=== PATIENT | male | born 1945 | race Caucasian/White ===

== ENCOUNTER 2018-05-31 11:36 | Observation (INO) ==
[2018-05-31] MEDS ORDERED: ceFAZolin 2 GM Premix Inj 2 GM/50 ML PIGGYBACK IV.SIG ONE (12:43)
[2018-05-31] MEDS ORDERED: ceFAZolin 2 GM IV; once IV.SIG SCH (13:00)
[2018-05-31] MEDS ORDERED: Metoprolol Tartrate 25 MG Tablet PO ONE (13:00)
[2018-05-31] MEDS ORDERED: Chlorhexidine Gluconate 2% 1 Pack (2 Cloths) TOPICAL ONE (13:00)
[2018-05-31] MEDS ORDERED: Sodium Chlor 0.9% Inj 500 ML IV.CONT ONE (13:00)
[2018-05-31] MEDS ORDERED: Chlorhexidine Gluconate 2% 1 Pack (2 Cloths) TOPICAL SCH (13:00)
[2018-05-31 13:10] LABS: Baso # (Auto) 0.1 th/mm3 (0.0-0.2); Eos # (Auto) 0.2 th/mm3 (0.0-0.4); Hematocrit 44.9 % (39.0-51.0); Hemoglobin 15.4 gm/dL (13.0-17.0); Lymph # (Auto) 3.1 th/mm3 (1.0-4.8); Lymph % (Auto) 31.2 % (9.0-44.0); Mean Corpuscular HGB Conc 34.3 % (32.0-36.0); Mean Corpuscular Hemoglobin 31.9 pg (27.0-34.0); Mean Corpuscular Volume 92.9 fL (80.0-100.0); Mean Platelet Volume 9.3 fL (7.0-11.0); Mono # (Auto) 0.8 th/mm3 (0.0-0.9); Mono % (Auto) 8.5 % (0.0-8.0); Neut # (Auto) 5.7 th/mm3 (1.8-7.7); Neut % (Auto) 57.3 % (16.0-70.0); Platelet Count 216 th/mm3 (150-450); Red Blood Count 4.83 mil/mm3 (4.50-5.90); Red Cell Distribution Width 14.2 % (11.6-17.2)
[2018-05-31 13:16] LABS: Bilirubin,Urine Negative (Negative); Clarity,Urine Clear (Clear); Color,Urine Yellow (Yellw/Straw); Glucose,Urine (UA) Negative (Negative); Leukocyte Esterase,Urine Negative (Negative); Nitrite,Urine Negative (Negative)
[2018-05-31 13:21] LABS: Activated Partial Thrombo Time 26.6 sec (23.4-31.7); INR 1.1 Ratio; Prothrombin Time 10.7 sec (9.8-11.6)
[2018-05-31 13:29] LABS: Albumin 3.8 g/dL (3.4-5.0); Anion Gap 8 meq/L (5-15); Aspartate Aminotransferase 33 U/L (15-37); Blood Urea Nitrogen 30 mg/dL (7-18); Calcium 9.2 mg/dL (8.5-10.1); Carbon Dioxide 28.9 meq/L (21.0-32.0); Chloride 103 meq/L (98-107); Glomerular Filtration Rate 25 mL/min (>89); Glucose,Random 105 mg/dL (74-106); Potassium 3.6 meq/L (3.5-5.1); Sodium 140 meq/L (136-145)
[2018-05-31 13:39] LABS: Alanine Aminotransferase 43 U/L (12-78); Alkaline Phosphatase 127 U/L (45-117); Total Protein 7.6 g/dL (6.4-8.2)
[2018-05-31] MEDS ORDERED: fentaNYL Citrate Inj 250 MCG/5 ML Ampul ONE (15:33)
[2018-05-31] MEDS ORDERED: fentaNYL Citrate Inj 100 MCG/2 ML Ampul ONE ×2 (15:33→19:59)
[2018-05-31] MEDS ORDERED: Bupivacaine/Epinephrine PF Inj 0.5% 30 ML Vial ONE (16:50)
[2018-05-31] MEDS ORDERED: Thrombin Topical Soln 5,000 UNIT Vial TOPICAL ONE (16:50)
[2018-05-31] MEDS ORDERED: methylPREDNISolone acetate 40 MG/ML VIAL ONE (16:50)
[2018-05-31] MEDS ORDERED: Gelatin Size 100 Topical Foam ONE (16:50)
[2018-05-31] MEDS ORDERED: ceFAZolin Inj 500 MG Vial ONE (17:18)
[2018-05-31] MEDS ORDERED: Morphine Sulfate Inj 2 MG/ML Vial IV.PUSH PRN (17:57)
[2018-05-31] MEDS ORDERED: Bisacodyl 10 MG Supp RECTAL PRN (17:57)
--- NOTE | 2018-05-31 19:51 | P.OP ---
Preoperative Diagnosis: Lumbar spinal stenosis Postoperative Diagnosis: Lumbar spinal stenosis Date of procedure: 05/31/18 Procedure: L4-5, L5-S1 left hemilaminectomy, mesiofacetectomy, foraminotomy, microsurgical dissection Anesthesia: BRIE Surgeon: Jerrell Barbosa MD Machine Boss: Priya Louie Pathology: none sent Operation and Findings: INDICATIONS FOR THE SURGICAL PROCEDURE Mr Yanes is a 72 year-old male who presented with intractable mechanical back pain and clinical evidence of lower extremity radiculopathy. The patient was found to have significant lumbar spinal stenosis with significant mass effect on the neural structures which correlated with the clinical symptoms. He failed maximum nonsurgical management including multiple modalities of conservative treatment as well as pain management interventions by an interventional pain specialist. A surgical decompression was indicated as a last resort. The [id number] details of the procedure, indications, alternatives, risks and potential complications were fully discussed with the patient. The patient fully understood. All the questions were answered. No guarantees were given. The patient voiced requesting the procedure and provided informed consents. The patient was offered the alternative of delaying the procedure and continuing with nonsurgical management. DETAILS OF THE SURGICAL PROCEDURE After the induction of general anesthesia, endotracheal intubation was performed. A Valdez catheter, bilateral EZEQUIEL hose and sequential compression devices were placed and kept throughout the procedure. The patient was positioned prone on a Dylan table over a Randolph frame. All pressure points were carefully padded with eggcrate mattress. The eyes were tapped shut after ointment was applied by the anesthesiologist to prevent corneal abrasion. A Samra hugger was placed over the exposed lower body to maintain control of the core body temperature. The lower lumbar region was prepped and draped in the usual sterile fashion. A spinal needle was placed for localization and an x- ray performed with a C-arm. A skin incision was made in the midline over the spinous processes L4-S1 with a #10 blade. Small subcutaneous bleeders were controlled with a bipolar and the dissection was carried out through the lumbar fascia exposing the spinous processes. A subperiostial dissection was performed with a Morillo elevator and a Bovie over the L4, L5, and S1 spinous process lamina and facets. A microdiscectomy self-retaining retractor was placed on the incision and an x- ray was obtained with an instrument placed underneath the lamina. At this point in the procedure the operating microscope was draped in the usual sterile fashion and brought to the field. The rest of the surgical procedure was performed using microsurgical dissection technique with exception of the closure. Once the level was confirmed, a decompressive laminectomy was performed at L4-5 , L5-S1 on the left side using the TPS drill with an 4mm drill bit. A medial facetectomy was performed and the superior free border of the ligamentum flavum was dissected with a ligament dissector and removed with a thin footplate 2 mm Kerrison. The medial facetectomy was done and the L5 nerve root was identified and followed towards its exit in the foramen. Epidural veins located laterally to the dural sac were coagulated with a bipolar and incised with microscissors. Gentle medial retraction of the dural sac allowed inspection of the disc space. The patient had severe facet arthropathy with hypertrhopy of the joint facets and ligamentum flavum resulting in mass effect over the dural sac and nerve roots. In addition, there was a broad-based minimal disc protusion, not significantly contributing to the stenosis. The incision was irrigated with a large amount of saline solution. A Valsalva maneuver failed to show any cerebrospinal fluid leak or bleeding. The decompression was assessed again and found to be satisfactory. The incision was then closed in layers. The fascia was closed with 0 Vicryl sutures in an interrupted fashion. The superficial fascia was closed with 0 Vicryl sutures. The fascia was infiltrated with 0.5% Marcaine with epinephrine 1:100,000 dilution. The subcutaneous tissue was irrigated then closed with 0 Vicryl and 3 -0 Vicryl. The skin was closed with 4-0 running subcuticular Vicryl. A sterile dressing was applied. At the end of the procedure, the sponge, needle and instrument counts were all correct. Estimated blood loss was less than 70-80 cc. No blood transfusion was given. No intraoperative complications occurred. The patient received prophylactic antibiotics. The patient was then extubated and transferred to the recovery room in stable condition.
[2018-05-31] MEDS ORDERED: *morphine SULFATE 10 MG/ML PERIprocedure ONLY ONE ×2 (20:10→20:21)
[2018-05-31] MEDS: Sod Chloride 0.9% Inj 1,000 ML IV.CONT SCH (20:18)
[2018-05-31] MEDS ORDERED: *HYDROmorphone PF Inj 1 MG/ML Ampul PERIprocedural Use ONLY ONE (20:31)
[2018-05-31] MEDS: Senna/Docusate Sodium 8.6/50 MG Tablet PO SCH (21:47)
--- NOTE | 2018-05-31 22:30 | XR ---
EXAM DATE: 05/31/2018 10:26 PM EST AGE/SEX: 72 years / Male INDICATIONS: Level localization, L4-5, L5-S1 laminectomy. CLINICAL DATA: This is the patient's initial encounter. Patient reports that signs and symptoms have been present for 1 day and indicates a pain score of Nonresponsive. MEDICAL/SURGICAL HISTORY: Non-responsive. Non-responsive. COMPARISON: No prior exams available for comparison. FINDINGS: Single lateral view from the operating room shows posterior soft tissue retractors and a metallic poi nter. The pointer is at L5/S1. CONCLUSION: Pointer at L5/S1. Electronically signed by: Burt Herbert MD 05/31/2018 10:29 PM EST
[2018-06-01] MEDS ORDERED: ceFAZolin 2 GM Premix Inj 2 GM/50 ML PIGGYBACK IV.SIG SCH (02:00)
[2018-06-01] MEDS: Sod Chloride 0.9% Inj 1,000 ML IV.CONT SCH (03:14)
[2018-06-01] MEDS ORDERED: CHLORTHALIDONE 25 MG PO SCH (09:00)
[2018-06-01] MEDS ORDERED: Finasteride 5 MG Tablet PO SCH (09:00)
[2018-06-01] MEDS ORDERED: Allopurinol 100 MG Tablet PO SCH (09:00)
--- NOTE | 2018-06-01 09:40 | P.DS ---
Date of admission: 05/31/18 18:01 Primary care physician: UNKNOWN Brief History from admission: Mr Yanes is a 72 year-old male who presented with intractable mechanical back pain and clinical evidence of lower extremity radiculopathy. The patient was found to have significant lumbar spinal stenosis with significant mass effect on the neural structures which correlated with the clinical symptoms. He failed maximum nonsurgical management including multiple modalities of conservative treatment as well as pain management interventions by an interventional pain specialist. A surgical decompression was indicated as a last resort. DS: Medications - Discharge Medications Prescriptions: tramadol [Ultram] 100 mg PO Q6H PRN #15 tab PRN Reason: Pain 1-10 And/Or Fever >101f DS: Summary Hospital Course: Mr. Yanes underwent an L4-5, L5-S1 left hemilaminectomy, mesiofacetectomy, foraminotomy, microsurgical dissection for Lumbar spinal stenosis on 05/31/18. His surgery went well without complications and he will be discharged home in stable conditions. - Time Spent with Patient Total time spent providing and/or coordinating discharge services: Less than 30 minutes - Quality: VTE Deep Vein Thrombosis/Pulmonary Embolism Present on Admission: No Exam Vital signs: Vital Signs 05/31/18 12:32 05/31/18 19:49 05/31/18 20:00 Temperature 97.9 F 97.8 F Pulse Rate 82 79 75 Respiratory Rate 16 15 12 Blood Pressure 154/84 H 135/81 153/71 H Pulse Oximetry 98 92 L 92 L 05/31/18 20:15 05/31/18 20:19 05/31/18 20:30 Temperature Pulse Rate 68 68 Respiratory Rate 12 12 12 Blood Pressure 164/75 H 162/73 H Pulse Oximetry 97 97 05/31/18 20:45 05/31/18 21:00 05/31/18 21:08 Temperature 98.0 F 97.4 F L Pulse Rate 70 70 Respiratory Rate 21 18 Blood Pressure 163/79 H 152/64 H Pulse Oximetry 94 L 97 95 05/31/18 21:45 06/01/18 00:00 06/01/18 04:00 Temperature 97.4 F L 97.3 F L Pulse Rate 74 66 Respiratory Rate 18 18 Blood Pressure 147/63 H 138/61 Pulse Oximetry 95 96 95 06/01/18 08:00 Temperature 98.1 F Pulse Rate 67 Respiratory Rate 17 Blood Pressure 107/53 L Pulse Oximetry 92 L Intake & Output 05/31/18 06/01/18 06/01/18 18:59 06:59 18:59 Intake Total 2980 / 2980 Output Total 500 / 500 Balance 2480 / 2480 Weight 140.5 kg 152.9 kg Intake: IV 1100 / 1100 NS Inj 1,000 ML @ 100 mls/hr IV 1000 / 1000 .CONT .Q10H MELVINA Rx#:[id number] Ancef 2 GM Premix Inj 2 gm In 100 / 100 50 ml @ 100 mls/hr IV.SIG Q8H MELVINA Rx#:[id number] Oral 480 / 480 Anesthesia Amount 1400 / 1400 Output: Urine 200 / 200 Estimated Blood Loss 80 / 80 Urine Amount (Catheter) 150 / 150 Indwelling Urethral Catheter 150 / 150 Wound Drainage 70 / 70 # 1 Back 70 / 70 Other: Date of Last Bowel Movement 05/30/18 Weight On Admission 140.5 kg Results Procedures completed during hospitalization: L4-5, L5-S1 left hemilaminectomy, mesiofacetectomy, foraminotomy, microsurgical dissection Labs on day of discharge: Labs from last 24 hours 05/31/18 05/31/18 05/31/18 12:35 12:35 12:35 WBC 10.0 RBC 4.83 Hgb 15.4 Hct 44.9 MCV 92.9 MCH 31.9 MCHC 34.3 RDW 14.2 Plt Count 216 MPV 9.3 Neut % (Auto) 57.3 Lymph % (Auto) 31.2 [place] % (Auto) 8.5 H Eos % (Auto) 2.0 Baso % (Auto) 1.0 Neut # (Auto) 5.7 Lymph # (Auto) 3.1 [place] # (Auto) 0.8 Eos # (Auto) 0.2 Baso # (Auto) 0.1 WBC Differential . Differential Comment Auto diff final PT 10.7 INR 1.1 APTT 26.6 Sodium 140 Potassium 3.6 Chloride 103 Carbon Dioxide 28.9 Anion Gap 8 BUN 30 H Creatinine 2.52 H Estimated GFR 25 L Random Glucose 105 Calcium 9.2 Total Bilirubin 0.6 AST 33 ALT 43 Alkaline Phosphatase 127 H Total Protein 7.6 Albumin 3.8 Urine Color Urine Clarity Urine pH Ur Specific [place] Urine Protein Urine Glucose (UA) Urine Ketones Urine Occult Blood Urine Nitrate Urine Bilirubin Urine Urobilinogen Ur Leukocyte Esterase Urine RBC Urine WBC Micro UA Comment Ur Microscopic Review Urine Culture Comments 05/31/18 12:30 WBC RBC Hgb Hct MCV MCH MCHC RDW Plt Count MPV Neut % (Auto) Lymph % (Auto) [place] % (Auto) Eos % (Auto) Baso % (Auto) Neut # (Auto) Lymph # (Auto) [place] # (Auto) Eos # (Auto) Baso # (Auto) WBC Differential Differential Comment PT INR APTT Sodium Potassium Chloride Carbon Dioxide Anion Gap BUN Creatinine Estimated GFR Random Glucose Calcium Total Bilirubin AST ALT Alkaline Phosphatase Total Protein Albumin Urine Color Yellow Urine Clarity Clear Urine pH 6.0 Ur Specific [place] 1.010 Urine Protein 100 H Urine Glucose (UA) Negative Urine Ketones Negative Urine Occult Blood Negative Urine Nitrate Negative Urine Bilirubin Negative Urine Urobilinogen Less than 2 Ur Leukocyte Esterase Negative Urine RBC Less than 1 Urine WBC Less than 1 Micro UA Comment Culture not ind Ur Microscopic Review Not Reportable Urine Culture Comments Culture not ind - Impressions ITS Impressions Lumbar Spine X-Ray 05/31/18 00:00 CONCLUSION: Pointer at L5/S1. Discharge Plan - Physicians Team Primary Care Provider: UNKNOWN, Attending Provider: Jerrell Barbosa - Rxs /Orders / Referrals /Forms Prescriptions: New tramadol [Ultram] 50 mg Tablet 100 mg PO Q6H PRN (Reason: Pain 1-10 And/Or Fever >101f) Qty: 15 RF: 0 Continue allopurinol 100 mg Tablet 100 mg PO DAILY atorvastatin 10 mg Tablet 10 mg PO DAILY chlorthalidone 25 mg Tablet 25 mg PO DAILY finasteride 5 mg Tablet 5 mg PO DAILY omeprazole 40 mg Capsule,Delayed Release(Dr/Ec) 40 mg PO DAILY tamsulosin 0.4 mg Capsule 0.4 mg PO DAILY
[2018-06-01] MEDS: Senna/Docusate Sodium 8.6/50 MG Tablet PO SCH (10:44)
== END 2018-06-01 16:30 | disposition home or self-care (01) ==
LOC: HSDC 11:36 → HSDI 11:36 → N06 21:05
PROVIDERS: ADMIT Neurological Surgery; ATTEND Neurological Surgery